=== PATIENT | male | born 1960 | race Caucasian/White ===

== ENCOUNTER 2016-12-09 15:35 | Inpatient (IN) | payer OTHER ==
--- NOTE | ~2016-12-09 | PN ---
Unit #: [id number] #: [id number] Patient: HEENA CLEANING [id number] [facility] [address] [place] [address] [id number] MR#: [id number] NAME: HEENA CLEANING ROOM: [facility] Age: 56 Sex: M Admission Date: 12/09/2016 : 1960 Attending Physician: Apurva Swartz M.D. Admitting Physician: Apurva Swartz M.D. Primary Care Physician: Primary Care Physician Melvi BONILLA NOTES DATE OF SERVICE 12/16/2016 DISCUSSION Mr. Cleaning is a 56-year-old white male who was seen today. Chart was reviewed and case was discussed with staff. He has been anxious and withdrawn though has not shown any agitation or irritability and rather seclusive to himself. Meanwhile, he has been taking the medications and tolerating them fairly well with no reported side effects. MENTAL STATUS EXAMINATION Middle-aged white male who is casually dressed with fair personal hygiene, appears to be in no acute distress or discomfort. He was awake and alert on interaction with intact orientation. His mood is anxious with congruent affect. Speech is slow and restricted in content. He denies any suicidal or homicidal ideations and also denies any auditory or visual hallucinations. His insight and judgment remain slightly impaired. TREATMENT PLAN 1. We will continue him on his current medications and treatment protocol. We will monitor his response to the medications and make further adjustments as needed. 2. We will continue to follow up. Dictated by... Pollo Zuluaga/sissy TD: 12/17/2016 10:44 JOB #: [id number] Unit #: [id number] #: [id number] Patient: HEENA CLEANING PROGRESS NOTES Page 1 of 1 X Apurva Swartz MD PROGRESS NOTE
--- NOTE | ~2016-12-09 | PN ---
Unit #: [id number] #: [id number] Patient: HENEA HURD [id number] [facility] [address] [place] [address] [id number] MR#: [id number] NAME: HEENA HURD ROOM: [facility] Age: 56 Sex: M Admission Date: 12/09/2016 : 1960 Attending Physician: Apurva Swartz M.D. Admitting Physician: Apurva Swartz M.D. Primary Care Physician: Primary Care Physician Melvi BONILLA NOTES DATE OF SERVICE: 12/14/2016 SUBJECTIVE The patient is a 56-year-old white male, who was seen today and chart was reviewed, and case was discussed with the staff. He has been anxious, withdrawn, and rather seclusive to himself. Meanwhile, he has been cooperative with treatment recommendations and has been taking medications and tolerating them fairly well with no reported side effects. MENTAL STATUS EXAMINATION Middle-aged white male, who was casually dressed with fair personal hygiene, appears to be in no acute distress or discomfort. He was awake and alert on interaction with intact orientation. His mood was anxious with a congruent affect. Denies any suicidal or homicidal ideations. His insight and judgment remain slightly impaired. TREATMENT PLAN 1. We will continue on his current medications and treatment protocol. We will monitor his response to medications and make further adjustments as needed. 2. We will continue to follow up. Dictated by... Pollo Zuluaga/oswald TD: 12/14/2016 12:18 JOB #: [id number] JOHANNY BONILLA NOTES Page 1 of 1 X Apurva Swartz MD NOTE
--- NOTE | ~2016-12-09 | PN ---
Unit #: [id number] #: [id number] Patient: HEENA CLEANING [id number] [facility] [address] [place] [address] [id number] MR#: [id number] NAME: HEENA CLEANING ROOM: [facility] Age: 56 Sex: M Admission Date: 12/09/2016 : 1960 Attending Physician: Apurva Swartz M.D. Admitting Physician: Pollo Zuluaga PROGRESS NOTES DATE OF SERVICE: 12/19/2016 SUBJECTIVE Mr. Cleaning is a 56-year-old white male, who was seen today and chart was reviewed and the case was discussed with the staff. He has been anxious, withdrawn, and rather seclusive to himself. Meanwhile, he has been cooperative with the treatment recommendations and has been taking the medications and tolerating them fairly well with no reported side effects. MENTAL STATUS EXAMINATION Middle-aged white male, who was casually dressed with fair personal hygiene, appears to be in no acute distress or discomfort. He was awake and alert on interaction with intact orientation. His mood was anxious with a congruent affect. He denies any suicidal or homicidal ideations. His insight and judgment remain slightly impaired. TREATMENT PLAN 1. We will continue him on his current medications and treatment protocol. We will monitor his response to the medications and make further adjustments as needed. 2. We will continue to follow up. Dictated by... Pollo Zuluaga/marijal TD: 12/20/2016 19:35 JOB #: [id number] JOHANNY PROGRESS NOTES Page 1 of 1 X Apurva Swartz MD PROGRESS NOTE
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
--- NOTE | ~2016-12-09 | CO ---
Unit #: [id number] #: [id number] Patient: SHAN HURD [id number] [facility] [address] [place] [address] [id number] MR#: [id number] NAME: SHAN HURD ROOM: [facility] Age: 56 Sex: M Admission Date: 12/09/2016 : 1960 Attending Physician: Apurva Swartz M.D. Consultation Date: 12/18/2016 CONSULTATION REPORT SUBJECTIVE Shan is a 56-year-old admitted on 12/09/2016 with depression and after a suicide attempt with an overdose of Xanax. He had been admitted to [facility] where he was treated for the overdose and then transferred to [facility]. Lab work at [facility] showed an admission WBC of 28.4. Repeat lab on 12/17/2016, WBC was 32.7. Old records from recent admission to [facility] were received. During his recent admission, he was diagnosed with chronic lymphocytic leukemia (CLL). The patient can follow up with his PCP/speeder hand. Dictated by... Sarah Rodgers P.A.-C. for Pollo Weldon/oswald TD: 12/19/2016 23:18 JOB #: [id number] CONSULTATION REPORT Page 1 of 1 X Sarah Rodgers CONSULTATION REPORT
--- NOTE | ~2016-12-09 | PN ---
Unit #: [id number] #: [id number] Patient: HEENA CLEANING [id number] [facility] [address] [place] [address] [id number] I MR#: [id number] NAME: HEENA CLEANING ROOM: [facility] Age: 56 Sex: M Admission Date: 12/09/2016 : 1960 Attending Physician: Apurva Swartz M.D. Admitting Physician: Apurva Swartz M.D. Primary Care Physician: Primary Care Physician Melvi ORLANDO PROGRESS NOTES DATE OF SERVICE: 12/17/2016 SUBJECTIVE Mr. Cleaning is a 56-year-old white male who was seen today and chart was reviewed, and case was discussed with the staff. There was an episode last night. Nursing staff reports the patient rolled over from his chair in the dayroom and apparently was diaphoretic and defecated on himself; however, his vitals were stable, his blood sugar was fine and he was able to come along with that issue and note for the medication to the patient and did inform me that the patient has been refusing to eat. I am enquired about that and he does not want to go to [facility] as he remand to [facility] upon discharge and that he wants to wait until he has to go to court because if he goes to [facility], he would lose his disability and has been trying to exhibit very manipulative behavior and then wants to stay here until the court date, and therefore, he states he is not going to eat, so he can just stay in the hospital. Meanwhile, he has been taking the medications and tolerating them fairly well with no reported side effects. MENTAL STATUS EXAMINATION Middle-aged white male who was casually dressed with fair personal hygiene, appears to be in no acute distress or discomfort. He was awake and alert with impaired attention and concentration. His mood was anxious with a congruent affect. His speech was slow and tangential. His thought process was disorganized with looseness of associations. His insight and judgment remain significantly impaired. TREATMENT PLAN 1. We will continue him on his current medications and treatment protocol. We will monitor his response to medications and make further adjustments as needed. 2. We will continue to follow up. Dictated by... Pollo Zuluaga/marijal TD: 12/17/2016 12:05 JOB #: [id number] Unit #: [id number] #: [id number] Patient: VANNESSAHEENA PROGRESS NOTES Page 1 of 1 X Apurva Swartz MD PROGRESS NOTE
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
--- NOTE | ~2016-12-09 | PN ---
Unit #: [id number] #: [id number] Patient: HEENA CLEANING [id number] [facility] [address] [place] [address] [id number] I MR#: [id number] NAME: HEENA CLEANING ROOM: [facility] Age: 56 Sex: M Admission Date: 12/09/2016 : 1960 Attending Physician: Apurva Swartz M.D. Admitting Physician: Apurva Swartz M.D. Primary Care Physician: Primary Care Physician Melvi BONILLA NOTES DATE December 13, 2016 DISCUSSION Mr. Cleaning is a 56-year-old white male, who was seen today and chart was reviewed and the case was discussed with the staff. He has been anxious, withdrawn, and seclusive to himself. Meanwhile, he has been cooperative with the treatment recommendations, and he has been taking the medications and tolerating them fairly well with no reported side effects. MENTAL STATUS EXAMINATION Middle-aged white male, who was casually dressed with fair personal hygiene and appears to be in no acute distress or discomfort. He was awake and alert with intact orientation. His mood is anxious with a congruent affect. He denies any suicidal or homicidal ideations. His insight and judgment remain slightly impaired. TREATMENT PLAN 1. We will continue him on his current medications and treatment protocol, and will monitor his response to the medications, and make further adjustments as needed. 2. We will continue to followup. Dictated by... Pollo Zuluaga/ev TD: 12/14/2016 08:42 JOB #: [id number] Unit #: [id number] #: [id number] Patient: HEENA CLEANING PROGRESS NOTES Page 1 of 1 X Apurva Swartz MD X PROGRESS NOTE
--- NOTE | ~2016-12-09 | PN ---
Unit #: [id number] #: [id number] Patient: HEENA CLEANING [id number] [facility] [address] [place] [address] [id number] MR#: [id number] NAME: HEENA CLEANING ROOM: 32 Age: 56 Sex: M Admission Date: 12/09/2016 : 1960 Attending Physician: Apurva Swartz M.D. Admitting Physician: Apurva Swartz M.D. Primary Care Physician: Primary Care Physician Melvi ORLANDO PROGRESS NOTES DATE 12/22/2016 DISCUSSION Mr. Cleaning is a 56-year-old, white male who was seen today and chart was reviewed and case was discussed with the staff. He has been anxious, withdrawn and rather seclusive to himself. Meanwhile, he has been cooperative with the treatment recommendations. He has been taking the medication and tolerating them fairly well with no reported side effects. MENTAL STATUS EXAM Middle-aged white male who was casually dressed with fair personal hygiene, appears to be in no acute distress or discomfort. He was awake and alert with impaired attention and concentration. His mood was anxious with congruent affect. His speech was slow and tangential. His thought processes were disorganized with some looseness of associations and flight of ideas. He insight and judgement remains significantly impaired. TREATMENT PLAN 1. We will continue him on his current medications and treatment protocol. We will monitor his response to the medication and make further adjustments as needed. 2. We will continue to follow up. Dictated by... Pollo Zuluaga/venkata TD: 12/23/2016 01:13 JOB #: [id number] Unit #: [id number] #: [id number] Patient: HEENA CLEANING PROGRESS NOTES Page 1 of 1 X Apurva Swartz MD PROGRESS NOTE
--- NOTE | ~2016-12-09 | DS ---
Unit #: [id number] #: [id number] Patient: [facility]EE[facility] CLEANING [id number] [facility] [address] [place] [address] [id number] I MR#: [id number] NAME: HEENA CLEANING ROOM: [facility] Age: 56 Sex: M Admission Date: 12/09/2016 : 1960 Discharge Date: Attending Physician: Apurva Swartz M.D. Primary Care Physician: Primary Care Physician No DISCHARGE SUMMARY IDENTIFYING DATA Mr. Cleaning is a 56-year-old white male who is a resident of [place], [place] and was transferred to us from [facility]. DISCHARGE DIAGNOSES Psychiatric: Major depressive disorder, recurrent, moderate, without psychotic features; alcohol dependence, moderate; benzodiazepine dependence, moderate. Medical: History of traumatic brain injury. Stressors: Moderate psychosocial stressors. HISTORY OF PRESENT ILLNESS Please see initial psychiatric evaluation for details. PAST PSYCHIATRIC HISTORY Please see initial psychiatric evaluation for details. PAST MEDICAL HISTORY Please see initial psychiatric evaluation for details. HOSPITAL COURSE The patient was admitted to the adult psychiatric unit at [facility] marcus Aguilar and was oriented to the hospital environment. Routine p.r.n. medications were initiated, and he was started on Celexa 20 mg a day as an antidepressant and he was closely monitored. He was taking the medications regularly and was tolerating them fairly well and was able to show a decent and therapeutic response with improvement in depression and anxiety, and as such, it was decided that he will be discharged from the hospital and will continue treatment on an outpatient basis. DISCHARGE MEDICATIONS Celexa 20 mg a day for depression. DISCHARGE CONDITION Stable. PROGNOSIS Fair. Dictated by... Apurva Swartz M.D. IAA/modl Unit #: [id number] #: [id number] Patient: HEENA CLEANING TD: 12/23/2016 06:57 JOB #: [id number] DISCHARGE SUMMARY Page 1 of 1 X Apurva Swartz MD X DISCHARGE SUMMARY
--- NOTE | ~2016-12-09 | PN ---
Unit #: [id number] #: [id number] Patient: HEENA CLEANING [id number] [facility] [address] [place] [address] [id number] MR#: [id number] NAME: HEENA CLEANING ROOM: [facility] Age: 56 Sex: M Admission Date: 12/09/2016 : 1960 Attending Physician: Apurva Swartz M.D. Admitting Physician: Apurva Swartz M.D. Primary Care Physician: Primary Care Physician Melvi BONILLA NOTES DATE OF SERVICE: 12/12/2016 SUBJECTIVE Mr. Cleaning is a 56-year-old white male, who was seen today and chart was reviewed, and the case was discussed with the staff. He has been anxious, withdrawn, he has been cooperative with treatment recommendations and has been taking the medications, and and tolerating them fairly well with no reported side effects. MENTAL STATUS EXAMINATION Middle-aged white male, who was casually dressed with fair personal hygiene, appears to be in no acute distress or discomfort. The patient was awake and alert on interaction with intact orientation. His mood was anxious with a congruent affect. He denies any suicidal or homicidal ideations. His insight and judgment remain slightly impaired. TREATMENT PLAN 1. We will continue on his current medications and treatment protocol. We will monitor his response to the medications, and make further adjustments as needed. 2. We will continue to follow up. Dictated by... Pollo Zuluaga/oswald TD: 12/13/2016 15:09 JOB #: [id number] JOHANNY PROGRESS NOTES Page 1 of 1 X Apurva Swartz MD PROGRESS NOTE
--- NOTE | ~2016-12-09 | PN ---
Unit #: [id number] #: [id number] Patient: HEENA CLEANING [id number] [facility] [address] [place] [address] [id number] MR#: [id number] NAME: HEENA CLEANING ROOM: [facility] Age: 56 Sex: M Admission Date: 12/09/2016 : 1960 Attending Physician: Apurva Swartz M.D. Admitting Physician: Pollo Zuluaga PROGRESS NOTES DATE OF SERVICE: 12/20/2016 SUBJECTIVE Mr. Cleaning is a 56-year-old white male, who was seen today and chart was reviewed and the case was discussed with the staff. He has been anxious, withdrawn, and seclusive to himself, though has been taking the medications and tolerating them fairly well with no reported side effects. MENTAL STATUS EXAMINATION Middle-aged white male, who was casually dressed with marginal personal hygiene, appears to be in no acute distress or discomfort. He was awake and alert with intact orientation. His mood was anxious with a congruent affect. He denies any suicidal or homicidal ideations. His insight and judgment remain slightly impaired. TREATMENT PLAN 1. We will continue him on his current treatment protocol. We will monitor his response to the medications and make further adjustments as needed. 2. We will continue to follow up. Dictated by... Pollo Zuluaga/marijal TD: 12/20/2016 14:02 JOB #: [id number] JOHANNY PROGRESS NOTES Page 1 of 1 X Apurva Swartz MD PROGRESS NOTE
--- NOTE | ~2016-12-09 | PN ---
Unit #: [id number] #: [id number] Patient: HEENA HURD [id number] [facility] [address] [place] [address] [id number] MR#: [id number] NAME: HEENA HURD ROOM: 32 Age: 56 Sex: M Admission Date: 12/09/2016 : 1960 Attending Physician: Apurva Swartz M.D. Admitting Physician: Apurva Swartz M.D. Primary Care Physician: Primary Care Physician Melvi BONILLA NOTES DATE 12/21/2016 SUBJECTIVE The patient is a 56-year-old white male who was seen today and chart was reviewed and case was discussed with the staff. He has been anxious, withdrawn, and rather seclusive to himself. Meanwhile, he has been cooperative with treatment recommendations and has been taking the medications and tolerating them fairly well with no reported side effects. MENTAL STATUS EXAMINATION Middle-aged white male, who was casually dressed with fair personal hygiene, appears to be in no acute distress or discomfort. He was awake and alert on interaction with intact orientation. His mood was anxious with a congruent affect. He denies any suicidal or homicidal ideations. His insight and judgment remain slightly impaired. TREATMENT PLAN 1. We will continue his current treatment protocol. We will monitor his response and make further adjustments as needed. 2. We will continue to follow up. Dictated by... Pollo Zuluaga/oswald TD: 12/21/2016 12:20 JOB #: [id number] JOHANNY BONILLA NOTES Page 1 of 1 X Apurva Swartz MD PROGRESS NOTE
--- NOTE | ~2016-12-09 | PN ---
Unit #: [id number] #: [id number] Patient: HEENA HURD [id number] [facility] [address] [place] [address] [id number] MR#: [id number] NAME: HEENA HURD ROOM: [facility] Age: 56 Sex: M Admission Date: 12/09/2016 : 1960 Attending Physician: Apurva Swartz M.D. Admitting Physician: Apurva Swartz M.D. Primary Care Physician: Primary Care Physician Melvi ORLANDO PROGRESS NOTES DATE 12/11/2016 DISCUSSION Wepuh-fam-denk-old white male with mood disorder and psychosis who was seen today and chart was reviewed and case was discussed with the staff. He was laying flat in his bed in his paper gown staring at the ceiling. 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 However, he has not shown any physical aggression. His medications were just initiated yesterday and though he has not had any tolerability , he has not been able to show a therapeutic response yet. MENTAL STATUS EXAMINATION Middle-aged white male who was casually dressed with marginal personal hygiene and appears to be in no acute distress or discomfort. He was awake and alert with impaired attention and concentration. His mood was anxious with congruent affect. His speech is slow and tangential. His thought processes were disorganized with some looseness of associations and flight of ideas. His insight and judgement remains significantly impaired. TREATMENT PLAN 1. Will continue his current medications and treatment protocol and will monitor his response to the medications and make further adjustments as needed. 2. Will continue to follow up. Dictated by... Apurva Swartz M.D. IAA/key TD: 12/11/2016 20:57 JOB #: [id number] Unit #: [id number] #: [id number] Patient: VANNESSAHEENA PROGRESS NOTES Page 1 of 1 X Apurva Swartz MD X PROGRESS NOTE
--- NOTE | ~2016-12-09 | PN ---
Unit #: [id number] #: [id number] Patient: HEENA CLEANING [id number] [facility] [address] [place] [address] [id number] MR#: [id number] NAME: HEENA CLEANING ROOM: 32 Age: 56 Sex: M Admission Date: 12/09/2016 : 1960 Attending Physician: Apurva Swartz M.D. Admitting Physician: Apurva Swartz M.D. Primary Care Physician: Primary Care Physician Melvi ORLANDO PROGRESS NOTES DATE OF SERVICE: 12/15/2016 SUBJECTIVE Mr. Cleaning is a 56-year-old white male, who was seen today and chart was reviewed, and case was discussed with the staff. He has been anxious, withdrawn, and rather seclusive to himself. Meanwhile, he has been cooperative with treatment recommendations and has been taking medications and tolerating them fairly well with no reported side effects. MENTAL STATUS EXAMINATION Middle-aged white male, who was casually dressed with fair personal hygiene, appears to be in no acute distress or discomfort. He was awake and alert on interaction with intact orientation. His mood was anxious with a congruent affect. He denies any suicidal or homicidal ideations. His insight and judgment remain slightly impaired. TREATMENT PLAN 1. We will continue him on his current medications and treatment protocol. We will monitor his response to medications and make further adjustments as needed. 2. We will continue to follow up. Dictated by... Pollo Zuluaga/marijal TD: 12/15/2016 08:43 JOB #: [id number] [facility] PROGRESS NOTES Page 1 of 1 X Apurva Swartz MD PROGRESS NOTE
[2016-12-10 10:01] LABS: BASOPHIL% 0.2 % (0-2.5); DIFF IND YES; EOSINOPHIL# 0.1 X10e3 (0-0.7); EOSINOPHIL% 0.5 % (0.0-7.0); HEMOGLOBIN 13.9 gm/dL (13.0-16.0); LYMPHOCYTE# 23.4 X10e3 (1.0-3.5); LYMPHOCYTE% 82.2 % (17.0-45.0); MEAN CELL VOLUME 86.5 FL (83-96); MEAN CORPUSCULAR HEMOGLOBIN 27.9 PG (28-34); MEAN CORPUSCULAR HGB CONC 32.2 g/dL (30-36); MEAN PLATELET VOLUME 9.1 FL (6.5-11.5); MONOCYTE# 0.9 X10e3 (0-1.0); MONOCYTE% 3.1 % (3.0-12.0); PLATELET COUNT 187 X10e3 (140-420); RED BLOOD COUNT 4.97 X10e (3.90-5.60); RED CELL DISTRIBUTION WIDTH 14.4 % (11.0-15.5); WHITE BLOOD COUNT 28.4 X10e3 (4.0-10.5)
[2016-12-10 10:15] LABS: ANISOCYTOSIS SL; PLATELET ESTIMATE NORMAL (NORMAL)
[2016-12-10 10:29] LABS: ALBUMIN SERUM 4.2 g/dL (3.5-5.0); BILIRUBIN,TOTAL 0.2 mg/dL (0.2-2.0); CALCIUM SERUM 8.8 mg/dL (8.4-10.2); CREATININE SERUM 1.1 mg/dL (0.6-1.4); GLOM FILT RATE Estimated 74.7 mL/min (>60); POTASSIUM 4.7 mmol/L (3.5-5.1); PROTEIN TOTAL SERUM 6.6 g/dL (6.0-8.3)
[2016-12-12 13:44] LABS: AMPHETAMINE NEG (NEG); BARBITURATES NEG (NEG); BENZODIAZEPINES NEG (NEG); COCAINE NEG (NEG); MARIJUANA POS (NEG); OPIATES NEG (NEG); TRICYCLIC ANTIDEPRESSANTS NEG (NEG); U METHADONE NEG (NEG)
[2016-12-12 13:52] LABS: URINE APPEARANCE CLEAR; URINE BILIRUBIN NEG (NEG); URINE BLOOD NEG (NEG); URINE COLOR DK YELLOW; URINE GLUCOSE NEG (NEG); URINE KETONE 1+ (NEG); URINE LEUKOCYTE ESTERASE TRACE (NEG); URINE NITRATE NEG (NEG); URINE PH 5.5 (5-8); URINE PROTEIN NEG (NEG); URINE SPECIFIC GRAVITY 1.028 (1.003-1.035)
[2016-12-12 13:55] LABS: URINE BACTERIA AUWI NEG (NEGATIVE); URINE SQUAMOUS EPITHELIAL CELL NONE SEEN /[HPF]
[2016-12-17 12:43] LABS: BASOPHIL% 0.1 % (0-2.5); EOSINOPHIL# 0.1 X10e3 (0-0.7); EOSINOPHIL% 0.3 % (0.0-7.0); HEMOGLOBIN 14.5 gm/dL (13.0-16.0); LYMPHOCYTE# 27.3 X10e3 (1.0-3.5); LYMPHOCYTE% 83.5 % (17.0-45.0); MEAN CELL VOLUME 86.7 FL (83-96); MEAN CORPUSCULAR HEMOGLOBIN 27.9 PG (28-34); MEAN CORPUSCULAR HGB CONC 32.2 g/dL (30-36); MEAN PLATELET VOLUME 9.9 FL (6.5-11.5); MONOCYTE# 0.9 X10e3 (0-1.0); MONOCYTE% 2.6 % (3.0-12.0); NEUTROPHIL# 4.4 X10e3 (1.5-7.1); NEUTROPHIL% 13.5 % (40-75); PLATELET COUNT 194 X10e3 (140-420); RED BLOOD COUNT 5.19 X10e (3.90-5.60); RED CELL DISTRIBUTION WIDTH 13.8 % (11.0-15.5); WHITE BLOOD COUNT 32.7 X10e3 (4.0-10.5)
[2016-12-17 12:45] LABS: ALBUMIN SERUM 4.9 g/dL (3.5-5.0); BILIRUBIN,TOTAL 0.9 mg/dL (0.2-2.0); BUN/CREATININE RATIO 23.33; CALCIUM SERUM 9.2 mg/dL (8.4-10.2); CREATININE SERUM 1.2 mg/dL (0.6-1.4); GLOM FILT RATE Estimated 67.2 mL/min (>60); POTASSIUM 4.1 mmol/L (3.5-5.1); PROTEIN TOTAL SERUM 7.3 g/dL (6.0-8.3)
[2016-12-17 12:46] LABS: DIFF IND YES
[2016-12-17 13:40] LABS: ANISOCYTOSIS SL; PLATELET ESTIMATE NORMAL (NORMAL)
[2016-12-17 13:41] LABS: SMUDGE CELLS 25 /100
== END 2016-12-23 12:00 | DRG 885 ==
LOC: P1S 18:17
PROVIDERS: Family Medicine; Psychiatry & Neurology Psychiatry
PROC: HZ2ZZZZ Detoxification Services for Substance Abuse Treatment (ICD-10-PCS; principal; 2016-12-09)
DX: F33.1 Major depressive disorder, recurrent, moderate (principal); C91.10 Chronic lymphocytic leukemia of B-cell type not having achieved remission; F13.20 Sedative, hypnotic or anxiolytic dependence, uncomplicated; F10.20 Alcohol dependence, uncomplicated; Z87.820 Personal history of traumatic brain injury
CPT/HCPCS: 80053; 80307; 81003; 82947; 85025